=== PATIENT | female | born 1980 | race Caucasian/White ===

== ENCOUNTER → 2020-11-10 01:44 | Outpatient (CLI) | payer BC, SELFPAY ==
[2020-11-10 19:34] LABS: SARS-CoV-2 RNA PCR Negative
== END ==
PROVIDERS: Visit Provider Obstetrics & Gynecology
DX: Z01.812 Encounter for preprocedural laboratory examination (principal); Z20.822 Contact with and (suspected) exposure to COVID-19
CPT/HCPCS: C9803; U0003; U0005

== ENCOUNTER 2020-11-14 00:55 | Day surgery (SDC) | payer BC, SELFPAY ==
[2020-10-31 14:26] VITALS: BMI 40.7
[2020-11-14 06:28] VITALS: BMI 40.8
[2020-11-14] MEDS: ACETAMINOPHEN 500 MG TABLET 1000 MG PO (06:48)
--- NOTE | 2020-11-14 06:54 | WPDANESEPPF ---
Anes - Initial Pre Proc Eval Procedure: Operation Date: 11/14/20 07:30 Proposed Procedures p Hysteroscopy Dilation and Curettage - Jonah Valera MD Date/Time: 11/14/20 06:54 Surgeon: Jonah Valera MD Pre Op Diagnosis: Abno. Uterine Bleeding Patient Data Age: 40 Gender: F Height: 5 ft 5 in Weight: 111.3 kg Allergies Allergy/AdvReac Type Severity Reaction Status Date / Time codeine AdvReac Mild RASH/SKIN Verified 11/14/20 06:14 BURNING-CRAWLS latex AdvReac Mild SKIN Verified 11/14/20 06:14 IRRITATION AT SITE OF GLOVES/CONDOMS Sulfa (Sulfonamide AdvReac Mild RASH Verified 11/14/20 06:14 Antibiotics) CHILD Home Medications Medication Instructions Recorded Confirmed Type cholecalciferol (vitamin D3) 50 mcg PO DAILY 10/31/20 11/14/20 History [Vitamin D3] fluticasone propionate [Flonase] 2 spray INTRANASAL DAILY PRN 10/31/20 11/14/20 History multivitamin [Daily Multivitamin] 1 tablet PO DAILY 10/31/20 11/14/20 History Patient hx anesthesia problems: none Family hx anesthesia problems: none PMFSH Past Medical History Medical History (Updated 11/14/20 @ 06:54 by Manpreet Chester MD) Rheumatoid arthritis Social History Social History Smoking status: Former smoker Tobacco type: cigarettes Second hand tobacco smoke exposure: No Smoking end date: 11/01/99 Additional smoking assessment comments: SMOKED IN HS-SOCIALLY Alcohol intake: current Drinks per week: 1 Alcohol use details: WINE Substance use: current Substance use type: marijuana Other substance usage details: 2X/WEEK FOR RA Last use: 10/29/2020 Living arrangements: with family Spiritual care concerns: No Anes - Eval Final PreProcedure Day of Procedure 11/14/20 06:54 Patient weight: morbidly obese Heart: regular rate and rhythm Lungs: clear to auscultation Airway: Mallampati scale class II Neurological: alert and oriented Last oral intake: >/= 8 hours ASA classification: III Emergent: no Anesthetic plan: proceed Anesthesia type and monitoring: general GIVS and standard monitoring Informed Consent: The patient's anesthetic plan and its attendant risks and benefits were discussed with the patient/family/POA. Questions were solicited and answers provided to the satisfaction of the patient/family/POA.
[2020-11-14] MEDS: LACTATED RINGERS 1,000 ML 30 ML IV CONT (06:58)
[2020-11-14 06:59] VITALS: BP 134/85; PULSE 71; RESP 16; TEMP 36.5; O2SAT 98
--- NOTE | 2020-11-14 07:06 | WPDHPUPDATE1 ---
History and Physical Update Update Date/Time: 11/14/20 07:06 History and Physical has been reviewed, including an updated exam of the patient. There are NO changes in the patient's condition. Risks, benefits, and alternatives have been discussed and questions answered. Patient agrees to proceed with procedure.
[2020-11-14] MEDS: KETOROLAC 30 MG/ML VIAL (*BKC) IV PUSH (08:03)
[2020-11-14 08:17] VITALS: BP 143/85; PULSE 72; RESP 16; O2SAT 97
--- NOTE | 2020-11-14 08:31 | PM.PROC ---
Procedure Note - Detailed Date of procedure: 11/14/20 Pre-op diagnosis: Abno. Uterine Bleeding Abnormal uterine bleeding Post-op diagnosis: same Procedure performed: Hysteroscopy D&C Description of procedure: The patient was taken the operating room. She was prepped and draped in the dorsal lithotomy position after induction of mac anesthesia. A speculum was placed in the vagina. The cervix grasped with a tenaculum. The cervix was injected at 3 and 9:00 a.m. with 1% lidocaine. Cervix was dilated up to 1 cm. The hysteroscope was inserted the intrauterine cavity and the above findings were noted. A medium-size curette was then used to curettage all surfaces within the endometrial cavity. The endometrial curettings were collected on a Telfa. There were submitted to the pathology department. Hysteroscope was reinserted the intrauterine cavity to re-examine the endometrial surfaces. The hysteroscope was withdrawn. The tenaculum was removed. The speculum was removed. The patient tolerated the procedure well. She was taken recovery room stable condition. Sponge lap needle counts were correct x2. Interceed was inserted into the cervix at the end of the case. Anesthesia: MAC Surgeon: Jonah Valera MD Estimated blood loss (mL): 15 Drains: No Packing: No Pathology: yes Complications: No immediate complications Condition: stable Disposition: PACU Findings: Scarred endometrium with scant viable endometrium. There was normal appearing vulva vagina and cervix.
[2020-11-14 08:45] VITALS: BP 149/91; PULSE 62; RESP 16; O2SAT 97
[2020-11-14] MEDS: oxyCODONE HCL (*CRX) 5 MG TAB IR PO (08:54)
[2020-11-14 09:15] VITALS: BP 160/88; PULSE 58; RESP 16
[2020-11-14 09:35] VITALS: BP 135/76; PULSE 64; RESP 16
== END 2020-11-14 09:44 | disposition home or self-care (01) ==
PROVIDERS: Visit Provider Obstetrics & Gynecology
PROC: 0U5B8ZZ Destruction of Endometrium, Via Natural or Artificial Opening Endoscopic (ICD-10-PCS; CPT 58563; principal; 2020-11-14 07:30)
DX: N93.9 Abnormal uterine and vaginal bleeding, unspecified (principal); N85.8 Other specified noninflammatory disorders of uterus; M06.9 Rheumatoid arthritis, unspecified; F12.90 Cannabis use, unspecified, uncomplicated; E66.01 Morbid (severe) obesity due to excess calories; Z68.41 Body mass index [BMI] 40.0-44.9, adult
CPT/HCPCS: 58558; 88305; A9270; J1885; J2250; J2405; J2704; J3010; J7030; J7120

== ENCOUNTER → 2022-06-10 07:48 | Outpatient (CLI) | payer BC, SELFPAY ==
--- NOTE | ~2022-06-10 | MMUS_ITS ---
EXAMINATION: MM diagnostic abdiel BI w chavo, US breast LT limited HISTORY: Palpable left breast abnormality for one month. Tender to the touch. TECHNIQUE: Additional 3-D tomosynthesis images of the breasts were performed and synthetic 2-D images were generated. CAD analysis was submitted and interpreted. High resolution Limited left breast ultr asound was performed. COMPARISON: None BREAST PARENCHYMAL COMPOSITION: Breast composed of scattered areas of fibroglandular density FINDINGS: MAMMOGRAPHIC FINDINGS: There are no suspicious masses, calcifications or architectural distortion in the right breast to sug gest malignancy. There is a 3.1 cm mass in the lower outer quadrant of the left breast, middle third. ULTRASOUND: Limited left breast ultrasound: At 3-4:00 in the area of palpable concern there is a solid slightly l obulated hypoechoic mass with posterior acoustic enhancement measuring 2.4 x 2.4 x 2.5 cm. There is i nternal vascularity. IMPRESSION: 1. Abnormal solid left breast mass at 3-4:00 measuring 2.5 cm greatest dimension by ultrasound. 2. Ultrasound guided left breast biopsy recommended. BI-RADS category 4, suspicious findings. Reviewed, dictated and finalized at location A. IMPRESSION: 1. Abnormal solid left breast mass at 3-4:00 measuring 2.5 cm greatest dimensio n by ultrasound. 2. Ultrasound guided left breast biopsy recommended. BI-RADS category 4, suspicious findings.
== END ==
PROVIDERS: PCP Internal Medicine; Visit Provider Nurse Practitioner Obstetrics & Gynecology
DX: N63.20 Unspecified lump in the left breast, unspecified quadrant (principal); R92.8 Other abnormal and inconclusive findings on diagnostic imaging of breast
CPT/HCPCS: 76642; 77062; 77066; G0279